=== PATIENT | female | born 1970 | race Caucasian/White ===

== ENCOUNTER → 2017-10-25 | Outpatient (CLI) | payer OTHER ==
[~2017-10-25] MED LIST: FERR-1 PO; IBU800 PO; LOR5 PO; PREN-67 PO
--- NOTE | 2017-10-28 11:47 | RADIOLOGY IMAGING REPORT ---
FACILITY: [facility] [place] PATIENT NAME: REAL ARIAS : [id number] MR: [id number] V: [id number] EXAM DATE: ORDERING PHYSICIAN: KERMIT RYAN TECHNOLOGIST: Ivette Sapp PROCEDURE:BILATERAL DIGITAL SCREENING MAMMOGRAM WITH CAD ASSISTED INTERPRETATION & 3D TOMOSYNTHESIS COMPARISON:Prior mammograms 11/17/13, 10/13/12 INDICATIONS:SCREENING FINDINGS: Moderately heterogeneous fibroglandular tissue is seen throughout the breasts. The parenchymal pattern has remained stable allowing for difference in mammographic technique & patient positioning. There is no evidence of malignant appearing mass, malignant appearing calcifications or other secondary sign of malignancy in either breast. DIAGNOSTIC CATEGORY 1--NEGATIVE. RECOMMENDATIONS: ROUTINE MAMMOGRAM AND CLINICAL EVALUATION. IMPRESSION: BIRADS 1: Negative No significant abnormality is seen Dictated by: Emma Dahl M.D. on 10/25/2017 at 16:02 Transcribed by: YUVAL on 10/28/2017 at 8:25 Approved by: Emma Dahl M.D. on 10/28/2017 at 11:46 [facility]
== END ==
LOC: MAMO 04:05
PROVIDERS: ATTEND Emergency Medicine
DX: Z12.31 Encounter for screening mammogram for malignant neoplasm of breast (principal)
CPT/HCPCS: 77063; 77067

== ENCOUNTER → 2018-01-28 | Outpatient (CLI) | payer OTHER ==
[2018-01-28 15:12] LABS: PLATELET COUNT, AUTOMATED 235 K/uL (150-450)
== END ==
LOC: LAB 14:53
PROVIDERS: ATTEND Nurse Practitioner Primary Care
DX: R10.11 Right upper quadrant pain (principal)
CPT/HCPCS: 36415; 82040; 82150; 82247; 82310; 82374; 82435; 82565; 82947; 83690; 84075; 84132; 84155; 84295; 84450; 84460; 84520; 85025

== ENCOUNTER → 2018-01-31 | Outpatient (CLI) | payer OTHER ==
--- NOTE | 2018-01-31 09:27 | RADIOLOGY IMAGING REPORT ---
FACILITY: [facility] - [place], [place] PATIENT NAME: Clarissa Villarreal : 1970 MR: [id number] V: [id number] EXAM DATE: ORDERING PHYSICIAN: EDUIN TA TECHNOLOGIST: Location: [facility] Patient: Clarissa Villarreal : 1970 Visit/Account:[id number] Date of Sevice: 01/31/2018 Limited abdominal ultrasound of the right upper quadrant Indication: Right upper quadrant abdominal pain. Comparison: None available Findings Within the liver, there are 2 cysts identified. Both cysts appear partially septated. The larger is seen in the right hepatic lobe measuring 2.2 x 2.3 x 1.7 cm. The second is seen in the liver dome m easuring up to 1.6 cm in greatest dimension. No internal color flow. Liver is otherwise normal in e chogenicity and echotexture. Liver is normal in contour and has smooth margins. There is normal hep atopedal portal venous flow. Gallbladder wall thickness is 1.4 mm with no evidence of shadowing stone or sludge within the gallbla dder lumen. Negative sonographic Crowe's sign reported by the technologist. Patient complains of ri b tenderness with imaging. Common duct measures 4.9 mm in maximum diameter with no evidence of shadowing stone. Abdominal aorta and IVC are patent and unremarkable. The right kidney is normal in size, contour, and echotexture and measures 10.7 cm in length. The head and proximal body of the pancreas is unremarkable. The distal body and tail is obscured by o verlying bowel gas. IMPRESSION: 1. Unremarkable appearance the gallbladder and no acute abnormality on this ultrasound of the right u pper quadrant region. 2. Small, partially septated hepatic cysts. Measurements as above. Report Dictated By: Wisam Paredes at 01/31/2018 9:16 AM Report E-Signed By: Wisam Paredes at 01/31/2018 9:24 AM WSN:[id number]
== END ==
LOC: US 01:13
PROVIDERS: ATTEND Nurse Practitioner Primary Care
DX: K76.89 Other specified diseases of liver (principal)
CPT/HCPCS: 76705

== ENCOUNTER → 2019-01-09 | Outpatient (CLI) | payer OTHER ==
--- NOTE | 2019-01-09 14:08 | RADIOLOGY IMAGING REPORT ---
[place] [facility] [place] NAME: REAL ARIAS : [id number] MR: [id number] V: [id number] EXAM DATE: [id number] ORDERING PHYSICIAN: KERMIT RYAN TECHNOLOGIST: Ivette Sapp PROCEDURE: BILATERAL DIGITAL SCREENING MAMMOGRAM WITH CAD ASSISTED INTERPRETATION & 3D TOMOSYNTHESIS REASON FOR STUDY: Screening FAMILY HISTORY OF BREAST CANCER: Maternal Grandmother & mother in her late 40's BREAST PROCEDURES/TREATMENTS: None COMPARISON: 10/25/17, 11/17/13, 10/13/12 VIEWS OBTAINED: Bilateral 2D & 3D full field CC & MLO projections BREAST DENSITY: The breasts are heterogeneously dense which can obscure small masses. MAMMOGRAM FINDINGS: Most of the parenchymal pattern has remained stable allowing for differences in mammographic technique & patient positioning. There is however, a new focal asymmetry just above the mid nipple line in the middle third of the Left breast in the Left MLO view for which spot compression view is recommended. IMPRESSION: BIRADS 0: Incomplete, needs additional imaging evaluation. Additional views of the Left breast recommended as described. DIAGNOSTIC CATEGORY 0--INCOMPLETE: NEED ADDITIONAL IMAGING EVALUATION. RECOMMENDATIONS: ADDITIONAL MAMMOGRAPHIC VIEWS REQUIRED: LEFT BREAST. Dictated by: Emma Dahl M.D. on 01/09/2019 at 13:51 Transcribed by: JAYNE on 01/09/2019 at 13:57 Approved by: Emma Dahl M.D. on 01/09/2019 at 14:06 [facility]
== END ==
LOC: MAMO 01:36
PROVIDERS: ATTEND Emergency Medicine
DX: R92.8 Other abnormal and inconclusive findings on diagnostic imaging of breast (principal); Z80.3 Family history of malignant neoplasm of breast
CPT/HCPCS: 77063; 77067

== ENCOUNTER → 2019-01-20 | Outpatient (CLI) | payer OTHER ==
--- NOTE | 2019-01-21 09:42 | RADIOLOGY IMAGING REPORT ---
FACILITY: [facility] - [place] PATIENT NAME: REAL ARIAS : [id number] MR: [id number] V: [id number] EXAM DATE: [id number] ORDERING PHYSICIAN: KERMIT RYAN TECHNOLOGIST: Maribell Mcginnis PROCEDURE:LEFT DIGITAL MAMMOGRAM DIAGNOSTIC WITH CAD ASSISTED INTERPRETATION & 3D TOMOSYNTHESIS REASON FOR STUDY: Further evaluation FAMILY HISTORY OF BREAST CANCER: Maternal Grandmother & mother in her late 40's BREAST PROCEDURES/TREATMENTS: None COMPARISON STUDIES: 01/09/19, 10/25/17, 11/17/13, 10/13/12 MAMMOGRAM VIEWS OBTAINED: 2D & 3D spot compression views in the Left MLO projections. BREAST DENSITY: The breasts are heterogeneously dense which can obscure small masses. MAMMOGRAM FINDINGS: The focal asymmetry just above the midnipple line in the middle third of the Left breast on the previous Left MLO view appeared compressible & apparently represented summation shadow. There was no demonstration of malignant appearing mass or calcification in the Left breast DIAGNOSTIC CATEGORY 2--BENIGN FINDING. RECOMMENDATIONS: ROUTINE MAMMOGRAM AND CLINICAL EVALUATION. ASSESSMENT: BIRADS 2: Benign finding. Dictated by: Emma Dahl M.D. on 01/20/2019 at 17:05 Transcribed by: JAYNE on 01/21/2019 at 8:10 Approved by: Emma Dahl M.D. on 01/21/2019 at 9:41 [facility]
== END ==
LOC: MAMO 00:29
PROVIDERS: ATTEND Emergency Medicine
DX: R92.2 Inconclusive mammogram (principal)
CPT/HCPCS: 77061; 77065